=== PATIENT | male | born 1945 | race Hispanic/Latino ===

== ENCOUNTER 2025-08-08 08:00 | Day surgery (SDC) | payer MEDICARE ==
[~2025-08-08] VITALS: Ht 170.2 cm; Wt 88.0 kg
[~2025-08-08 08:00] MED LIST: CALCIUM500 MG PO; POTASSIUM CHLO10 MEQ PO; SULFAMETHOXAZOL20 M1 PO; TAMSULOSIN HCL0.4 MG PO
[2025-08-08 08:25] VITALS: BP 141/60
[2025-08-08] MEDS ORDERED: LACTATED RINGER'S 1,000 ML IV SCH (08:45)
[2025-08-08] MEDS ORDERED: CEFAZOLIN SODIUM 2 GM in SODIUM CHLORIDE 0.9% 100 ML IV SCH (08:45)
[2025-08-08] MEDS ORDERED: DEXAMETHASONE SOD PHOS 4 MG/ML VIAL ONE (09:03)
[2025-08-08] MEDS ORDERED: ACETAMINOPHEN 1,000 MG/100 ML VIAL ONE (09:03)
[2025-08-08] MEDS ORDERED: LIDOCAINE HCL 2% 5 ML SDV ONE (09:03)
[2025-08-08] MEDS ORDERED: fentaNYL citrate 100 MCG/2 ML VIAL ONE (09:03)
[2025-08-08] MEDS ORDERED: NALOXONE HCL 0.4 MG SYR IV PRN (10:30)
[2025-08-08] MEDS ORDERED: fentaNYL citrate 50 MCG/ML SDV IV PRN (10:30)
[2025-08-08] MEDS ORDERED: KETOROLAC TROMETHAMINE 30 MG/ML VIAL IV PRN (10:30)
[2025-08-08] MEDS ORDERED: IBLOOD GLUCOSE TEST STRIP 1 EA TEST VI PRN (10:30)
[2025-08-08 11:05] VITALS: BP 126/65
[2025-08-08 12:10] VITALS: BP 140/72
[2025-08-08 13:20] VITALS: BP 132/70
[2025-08-08] MEDS ORDERED: HYDROCODON-ACE1 EA10 PO (13:22)
[2025-08-08] MEDS ORDERED: CEPHALEXIN500 MG PO (13:23)
[2025-08-08] MEDS ORDERED: HEParin SOD (PORCINE) 500 UNIT/5 ML ML IV ONE (13:30)
--- NOTE | 2025-08-08 15:11 | NUR ---
1034- PT PRESENTS TO PACU, SEMI ROB POSITION, AWAKE BUT DROWSY. LR INFUSING TO LFA IV. BREATHING EVEN AND NON LABORED ON ROOM AIR. ABD SOFT, NON DISTENDED. DRESSING CDI TO RIGHT GROIN. ALL MONITORS IN PLACE. 1045- PT REPORTS 2/10 PAIN, BUT TOLERABLE. DENIES NAUSEA. ICE TO INCISION SITE PER DR KIM. 1100- PT TAKEN BACK TO DAY SURGERY, VITALS OBTAINED, WATER AND JELLO PROVIDED. DISCUSSED TAKING PAIN PILL AFTER EATING. REPORT TO Cammie NEAL RN AT BEDSIDE. CARE OF PT TURNED OVER AT THIS TIME.
[2025-08-08] MEDS ORDERED: SEVOFLURANE 250 ML BTL INH ONE (16:01)
--- NOTE | 2025-08-08 16:36 | NUR ---
0800: PATIENT ARRIVED TO DAY SURGERY UNIT VIA HOSPITAL WHEELCHAIR. ASSISTED PATIENT TO WIPE DOWN AND GET CHANGED IN TO GOWN. WOUNDS NOTED TO RIGHT KNEE AND RIGHT ANKLE. DR. KIM IN TO SEE PATIENT. DR. KIM SAW WOUNDS TO RIGHT LEG. 1105: PATIENT BACK IN DAY SURGERY ROOM FROM PACU. PATIENT STATES HE'S HAVING " A LITTLE PAIN" AT THE SURGERY SITE. DENIES NEED FOR PAIN MEDICATION AT THIS TIME. VS CHECKED. SCD ON LEFT LEG ONLY. IV SITE WNL. CALL LIGHT WITHIN REACH. 1210: PATIENT STATES DOING WELL. NO NEED FOR PAIN MEDICATION AT THIS TIME. RIGHT GROIN DRESSING CDI. TOLERATING WATER. GIVEN CRACKERS TO EAT. CALL LIGHT WITHIN REACH. 1245: LEFT CHEST PORTACATH ACCESSED. VERBAL ORDER TO ACCESS AND CHECK FUNCTIONALITY PER DR. KIM. SON STATES PORTACTH HAS NOT BEEN ACCESSED IN ABOUT A YEAR. LEFT CHEST PORT ACCESSED WITHOUT DIFFICULTY. BRISK BOOD RETURN ACHIEVED. FLUSHED WITH NS EASILY. PATIENT TOLERATED PORT ACCESS WELL. 1320: VS CHECKED. PATIENT STATES DOING WELL. DENIES NEED FOR PAIN MEDICATION. USING URINAL INTERMITTENTLY THAT IS AT HIS BEDSIDE. 1343: LEFT CHEST PORT FLUSHED WITH 20 ML OF NS AND HAD BRISK BLOOD RETURN. THEN FLUSHED WITH 500 UNITS OF HEPARIN. PORT THEN DEACCESSED. PATIENT TOLERATED PORT DEACCESS WELL. BANDAID PLACED OVER PORT ACCESS SITE. 1400: PATIENT ASSISTED TO GET DRESSED BY OTHER RN. 1415: IV DC'D WNL. TIP INTACT. DRESSING APPLIED. PATIENT WAITING IN WHEELCHAIR FOR SON TO COME HEAR DISCHARGE INSTRUCTIONS. 1438: DISCHARGE INSTRUCTIONS GIVEN TO SON AND PATIENT. PATIENT DISCHARGED TO HOME VIA WHEELCHAIR WITH SON.
--- NOTE | 2025-08-09 10:00 | OR ---
[facility] [address], [place] [address] Signed DATE OF OPERATION: 08/08/2025 SURGEON: Kaushik Kim DO PREOPERATIVE DIAGNOSIS: Large incarcerated inguinal hernia. POSTOPERATIVE DIAGNOSES: 1. Large incarcerated inguinal hernia with partial small bowel obstruction. 2. Right testicular torsion with testicle. PROCEDURES PERFORMED: 1. Right inguinal hernia repair and reduction of partial small bowel obstruction. 2. Right orchiectomy. ANESTHESIA: General. ESTIMATED BLOOD LOSS: Minimal. DRAINS: None. COMPLICATIONS: None. DESCRIPTION OF PROCEDURE: The patient was brought to the operating room, placed in supine position. After induction of general anesthesia, the abdomen was then sterilely shaved, prepped, and draped in usual fashion. incision over the right inguinal canal. The skin was incised with a scalpel. Dissection continued down through the layers of subcutaneous tissue. Bleeding points controlled with electrocautery. The external oblique aponeurosis was identified, external ring was then identified and the aponeurosis was opened . Upon encountering this, large inguinal hernia was noted traveling into the testicle and through a larger hernia sac. Hernia sac was then entered sharply and opened to its fullest extent. Partial small bowel obstruction was reduced small bowel in the hernia itself. The small bowel was reduced, placed back intra-abdominally with sponge stick. The right cord and cord structures were then visualized and the testicle was brought up into the incision. Electronically Signed By: KAUSHIK KIM DO 08/09/25 1000 PATIENT NAME: OBI MOCK OPERATIVE REPORT DATE OF : 43 REPORT #: [id number] PHYSICIAN: KAUSHIK KIM DO PCP: Chandler Frank DO REPORT IS CONFIDENTIAL AND NOT TO BE RELEASED WITHOUT AUTHORIZATION [facility] [address], [place] [address] Signed Found to be grossly torsed and adherent to the hernia sac itself. On this basis, decision to complete orchiectomy was then performed. The cord and cord structures were then sterilely ligated with 2-0 Vicryl in a stick tie fashion. The cord and cord structures were then excised and passed off the field. The remainder of the small bowel was then further mobilized and dunked into the abdominal cavity in anatomic position. The floor of the inguinal canal was then reconstructed with interrupted 0 Ethibond in a [id number]-[id number]-rgago fashion. This was completed from the pubic tubercle up above the internal ring. After the satisfactory repair had been done, the entire region was then copiously irrigated dry . The external oblique aponeurosis was reapproximated with 2-0 Vicryl in an interrupted fashion and the subcutaneous tissue was closed with 3-0 Vicryl in an interrupted fashion. Skin was closed with clips. Dermabond dressing was applied. The patient tolerated the procedure well and to recovery room in satisfactory condition. aKushik Kim DO RS/MODL /[id number] Copies: ~ Electronically Signed By: KAUSHIK KIM DO 08/09/25 1000 PATIENT NAME: OBI MOCK OPERATIVE REPORT DATE OF : 43 REPORT #: [id number] PHYSICIAN: KAUSHIK KIM DO PCP: Chandler Frank DO REPORT IS CONFIDENTIAL AND NOT TO BE RELEASED WITHOUT AUTHORIZATION
--- NOTE | 2025-08-14 15:30 | PATH ---
[facility] [address], [place] [address] Signed SPECIMEN(S): A RIGHT INGUINAL HERNIA SAC AND CONTENTS SPECIMEN SOURCE: A. RIGHT INGUINAL HERNIA SAC AND CONTENTS CLINICAL HISTORY: Right inguinal hernia FINAL PATHOLOGIC DIAGNOSIS: A. Right inguinal hernia sac and contents, submitted: - Fragments of hernia sac, epididymis and benign fibromembranous tissue. DDF MICROSCOPIC EXAMINATION: Histologic sections of all submitted blocks are examined by light microscopy. These findings, together with the gross examination, support the pathologic diagnosis. GROSS DESCRIPTION: The specimen, labeled and designated "Jossie Clark, right inguinal hernia sac and contents," is received in formalin and consists of a 78 g, portion of crisostomo-pink soft tissue comprised of fibromembranous tissue and a testicle with epididymis. The testicle itself measures 4.8 x 3.4 x 3 cm with epididymis measures 7.4 x 1.2 x 0.8 cm. The attached spermatic cord measures approximately 2.1 cm in length by 1.7 cm in diameter. There are diffuse adhesions between the fibromembranous tissue and testicle. There is no significant amount of yellow lobulated adipose tissue. The tunica albuginea is white and smooth with no discrete lesions, subsequently inked black the specimen is sectioned revealing unremarkable testicular parenchyma with tubules that string with ease. There are no discrete masses or areas of hemorrhage. The rest of the fibromembranous tissue is crisostomo-pink and unremarkable with no discrete masses. Shop Supervisor sections are submitted as follows: Cassette Summary: (A1) spermatic cord margin (A2) testicular parenchyma with epididymis (A3) fibromembranous tissue AA (under the direct supervision of a pathologist) The Gross Description was prepared using a voice recognition system. The report PATIENT NAME: OBI CLARK PATHOLOGY DATE OF : 43 REPORT #: [id number] PHYSICIAN: CHRISTINE PATHOLOGY PCP: Chandler Frank DO REPORT IS CONFIDENTIAL AND NOT TO BE RELEASED WITHOUT AUTHORIZATION [facility] [address], [place] [address] Signed was reviewed for accuracy; however, sound-alike word errors, addition and/or deletions may occur. If there is any question about this report, please contact Client Services. ADDITIONAL NOTES: Immunohistochemical and/or in situ hybridization studies if performed in this case included appropriate positive controls that reacted as expected. This test was developed and its performance characteristics determined by [facility]. It has not been cleared or approved by the U.S. Food and Drug Administration. The FDA has determined that such clearance or approval is not necessary. This test is used for clinical purposes. It should not be regarded as investigational or for research. [facility] is certified under the Clinical Laboratory Improvement Amendments of 1988 (CLIA) as qualified to perform high complexity clinical laboratory testing. PERFORMING LABORATORY: Technical component was performed by [facility], [address] [place] [id number] (CLIA# [id number]). Professional interpretation was performed by [facility] [address] [place] [phone] [id number] Diagnostician: Adelfo Ledbetter DO Pathologist Electronically Signed 08/14/2025 Copies: ~ PATIENT NAME: OBI CLARK PATHOLOGY DATE OF : 43 REPORT #: [id number] PHYSICIAN: CHRISTINE MCCARTHY PCP: Chandler Frank DO REPORT IS CONFIDENTIAL AND NOT TO BE RELEASED WITHOUT AUTHORIZATION
== END 2025-08-08 14:38 | disposition home or self-care (01) ==
LOC: DS 08:00
PROVIDERS: ATTEND Surgery
PROC: 0VT90ZZ Resection of Right Testis, Open Approach (ICD-10-PCS; 2025-08-08)
PROC: 0YQ50ZZ Repair Right Inguinal Region, Open Approach (ICD-10-PCS; principal; 2025-08-08 09:00)
DX: K40.30 Unilateral inguinal hernia, with obstruction, without gangrene, not specified as recurrent (principal); N44.00 Torsion of testis, unspecified; Z79.899 Other long term (current) drug therapy
CPT/HCPCS: 00830; 88302; J0131; J0688; J1100; J2003; J2405; J2704; J3010; J7121